=== PATIENT | male | born 1965 | race African-American/Black ===

== ENCOUNTER 2016-08-19 11:35 | Emergency (ER) | payer OTHER ==
[2016-08-19] MEDS ORDERED: Ondansetron HCl/PF 4 MG/2 ML Vial ONE (13:25)
[2016-08-19] MEDS ORDERED: Sodium Chloride 0.9% 1,000 ML ONE (13:26)
[2016-08-19 13:39] LABS: #Eosinphils 0.1 thou/uL (0.0-0.7); #Lymphocytes 0.5 thou/uL (1.20-3.40); #Monocytes 0.2 thou/uL (0.11-0.59); #Neutrophils 7.8 thou/uL (1.40-6.50); %Basophils 0.5 % (0.0-1.0); %Eosinophils 1.1 % (0.0-10.0); %Lymphocytes 5.7 % (21.0-51.0); %Monocytes 2.7 % (0.0-10.0); Hematocrit 53.3 % (42.0-52.0); Mean Platelet Volume 6.4 fL (7.4-10.4); Red Blood Cell (RBC) Count 5.52 mill/uL (4.70-6.10); White Blood Cell (WBC) Count 8.7 thou/uL (4.8-10.8)
[2016-08-19 13:51] LABS: ALT (SGPT) 17 U/L (0-55); AST (SGOT) 16 U/L (5-34); Alkaline Phosphatase 73 U/L (40-150); Anion Gap 13 mmol/L (10-20); BUN (Urea Nitrogen) 12 mg/dL (8.4-25.7); Calc. Creatinine Clearance 0 mL/min (70-130); Calcium 9.3 mg/dL (7.8-10.44); Carbon Dioxide 24 mmol/L (22-29); Chloride 105 mmol/L (98-107); Estimated GFR-MDRD 82; Globulin 3.7 g/dL (2.4-3.5); Lipase 25 U/L (8-78); Protein, Total 8.2 g/dL (6.0-8.3)
[2016-08-19 13:51] LABS: Blood, Urine Small (Negative); Glucose, Urine (Dipstick) Negative (Negative); Ketone, Urine 15 mg/dL (Negative); Nitrite Negative (Negative); Protein, Urine (Dipstick) 30 mg/dL (Neg-Trace); Urobilinogen 0.2 mg/dL (0.2-1.0)
[2016-08-19 13:53] LABS: Bilirubin Negative (Negative)
[2016-08-19 13:58] LABS: Bacteria/HPF Rare-Few HPF (None Seen); RBC/HPF 0-3 HPF (0-3); Squamous Epithelial 0-3 HPF (0-3); WBC/HPF 0-3 HPF (0-3)
--- NOTE | 2016-08-19 14:52 | CT ---
EXAM: ABDOMEN CT WITHOUT CONTRAST PELVIC CT WITHOUT CONTRAST 08/19/16 HISTORY: Left upper quadrant pain in the abdomen times three days. Nausea and vomiting. COMPARISON: None. TECHNIQUE: Abdomen and pelvic CT are performed without IV or oral contrast. Coronal reformatted images are subm itted for interpretation. FINDINGS: ABDOMEN CT: The lung bases are clear. The heart size is normal. No pericardial effusion. Descending thoracic and abdominal aorta are of normal caliber. No periaortic fat stranding. No gastrohepatic, retrocrural or periportal lymphadenopathy. No mesenteric mass, lymphadenopathy, fr ee air or free fluid. Evaluation of the solid organs is limited with lack of oral contrast. No solid organ abnormality. Gallbladder is unremarkable. Hypodensities in the left and right renal pelvis compatible with bilateral parapelvic cysts. Bilater ally, no hydronephrosis, nephrolithiasis, perinephric fat stranding. Bilateral ureters have a normal caliber. No hydroureter, periureteral fat stranding or ureterolithiasis. Evaluation of the alimentary canal is limited by lack of oral contrast. No evidence of bowel obstruc tion. Normal caliber appendix. Scattered fluid and fecal material is noted in nondistended, nondilat ed colon. PELVIC CT: No mass, lymphadenopathy, free air or free fluid. There are no osteoblastic or osteolytic lesions. IMPRESSION: 1. Bilateral peripelvic cysts. Bilaterally, no obstructive uropathy. 2. Normal caliber appendix. POS: [facility]
--- NOTE | 2016-08-19 16:10 | ERRECORD ---
[facility] EMERGENCY RECORD HPI ABDOMINAL PAIN (15:22 AGRE) CHIEF COMPLAINT: Patient presents for evaluation of abdominal pain. HISTORIAN: History provided by patient, LUQ AND LLQ ABDOMINAL PAIN SINCE AROUND 3 AM. HAD SOME VOMITING INITIALLY, RECENTLY HAD 3 LOOSE STOOLS. HAS CHILLS BUT NO FEVER, NO URINARY SYMPTOMS. NO BLOOD IN THE STOOLS OR URINE OR EMESIS. NO INJURIES. DENIES SICK CONTACTS, TRAVELING, CAMPING, BAD FOOD, ANTIBIOTICS RECENTLY. THE PAIN GOES TO HIS BACK ON THE LEFT. LOCATION MALE: No localizing symptoms. QUALITY: Pain is dull in nature, described as aching, described as cramping, described as pressure-like. SEVERITY: Maximum severity of symptoms severe, Currently symptoms are severe. TIME COURSE: Gradual onset of symptoms. ASSOCIATED WITH: No associated chills, No associated constipation, Associated with diarrhea, No associated fever, No associated genital discharge, No associated groin pain, No associated hematuria, No associated melena, Associated with nausea, No associated testicular pain, No associated inability to tolerate oral intake, No associated urinary tract infection signs or symptoms, Associated with vomiting, Denies any other complaints. RELIEVED BY: Patient's condition relieved by nothing. EXACERBATED BY: Patient's condition exacerbated by nothing. ROS (15:25 AGRE) CONSTITUTIONAL: Historian denies chills, denies fever, denies weakness. EYES: Historian denies eye redness, denies vision changes. ENT: Historian denies sore throat, denies stridor. CARDIOVASCULAR: Historian denies chest pain, denies diaphoresis. RESPIRATORY: Historian denies cough, denies shortness of breath. GI: Historian reports abdominal pain, denies appetite changes, denies constipation, denies hematemesis, denies hematochezia, denies jaundice, denies melena, reports nausea, reports vomiting. MUSCULOSKELETAL: Historian denies back pain, denies neck pain. SKIN: Historian denies skin changes, denies skin lesions. NEUROLOGIC: Historian denies confusion, denies dizziness, denies focal weakness, denies headache. HEMO/LYMPHATIC: Normal hematologic/lymphatic system review, Historian denies petechiae. PSYCHIATRIC: Negative psychiatric review of systems, Historian denies anxiety. PAST MEDICAL HISTORY (12:46 REZE) MEDICAL HISTORY: Flu vaccine not up to date, Tetanus not up to date, Flu vaccine not up to date, Tetanus not up to date, Pneumococcal vaccine not up to date, Flu vaccine not up to date, Tetanus immunization up to date, Pneumococcal &a-1R&a+25V*p+0X*k4130D*c202B*c15G*c2P*p-0X&a-25V&a+1R Name: Alex Samson : 1965 M51 MedRec: [id number] AcctNum: [id number] Prepared: FriAug 19, 2016 15:57 by Interface Page 1 of 4 pMD [facility] EMERGENCY RECORD vaccine not up to date, Past medical history includes gastrointestinal disease, Self treats indigestion with zantac about 3 times weekly, Past medical history includes history of hypertension, was on RX for HBP in past but discontinued treatment - not currently on anything. reviewed 08-19-16. MALE SURGICAL HISTORY: states had egd 2 years ago, Patient has no surgical history.reviewed 08-19-16. SOCIAL HISTORY: Patient drinks socially, every week, Patient denies drug use, Patient currently uses tobacco, smokes cigarettes, daily, Patient has smoked for 20 years, Patient smokes 1/2 packs per day, Patient drinks socially, Patient denies drug use, Patient currently uses tobacco, smokes cigarettes, Patient smokes 1/2 packs per day, Patient drinks socially, rarely, Patient currently uses drugs, abuses marijuana, Patient currently uses tobacco, daily, Patient currently uses tobacco, Patient smokes cigarettes, Patient smokes 1/2 packs per day, Patient has smoked for 30 years, Tobacco history notes: since 18 yrs old, Patient drinks socially, Alcohol history notes: on weekends primarily, Patient currently uses drugs, abuses marijuana, abuses opiate, Last used: 2 days ago, Drug history notes: "I have tried it all....except Heroin". States is currently only using Marijuana.reviewed 08-07-15. FAMILY HISTORY: Family history includes diabetes, father, Family history includes hypertension, mother, father. reviewed 08-19-16. KNOWN ALLERGIES No Known Allergies Seasonal (Unconfirmed): Severity: Mild, - SELF TREATS CURRENT MEDICATIONS (12:39 REZE) Zantac 75: TABLET : Strength - 75 mg : ORAL Patient Dose: 75 mg Oral once a day. VITAL SIGNS VITAL SIGNS: BP: 133/80, Pulse: 109, Resp: 20, Temp: 99.5 (Oral), Pain: 9 (Constant), O2 sat: 99 on Room Air, Time: 08/19/2016 12:35. (12:35 REZE) BP: 136/73, Pulse: 100, Resp: 18, O2 sat: 97 on RA, Time: 08/19/2016 15:45. (15:45 MSPE) PHYSICAL EXAM (15:27 AGRE) CONSTITUTIONAL: Vital signs reviewed, Patient afebrile, Respiratory rate normal, Patient appears non toxic, Patient appears pain free, Patient alert and oriented to person, place and time, NURSES NOTES REVIEWED. HEAD: Head exam included findings of head atraumatic, normocephalic. EYES: Eye exam included findings of eyelids normal to inspection, &a-1R&a+25V*p+0X*[id number]*c202B*c15G*c2P*p-0X&a-25V&a+1R Name: Alex Samson : 1965 M51 MedRec: [id number] AcctNum: [id number] Prepared: FriAug 19, 2016 15:57 by Interface Page 2 of 4 pMD [facility] EMERGENCY RECORD Extraocular muscles intact, Conjunctiva normal, Sclera normal. ENT: Ear exam normal, Nose exam normal, Mouth exam normal. NECK: Neck exam normal, Neck exam included findings of normal range of motion, no meningeal signs, no cervical adenopathy. RESPIRATORY CHEST: Respiratory and chest exam normal, Respiratory exam included findings of no respiratory distress, Breath sounds clear, No wheezing, No rales, No rhonchi, Breath sounds not diminished. CARDIOVASCULAR: Cardiovascular exam included findings of heart rate regular rate and rhythm, Heart sounds normal, normal S1, normal S2, no murmurs, no rub, no gallop. ABDOMEN MALE: Abdominal exam normal, Abdominal exam included findings of abdomen nontender, Bowel sounds normal, Liver normal, Spleen normal, no distension, no mass. BACK: Back exam normal, Back exam included findings of normal inspection, range of motion normal. UPPER EXTREMITY: Upper extremity exam included findings of inspection normal, Range of motion normal. LOWER EXTREMITY: Lower extremity exam included findings of inspection normal, Range of motion normal. NEURO: Neuro exam normal, Neuro exam findings include patient oriented to person, place and time, Speech normal, Gait normal, Memory normal, Cranial nerves intact, no focal motor deficits. SKIN: Skin exam normal, Skin exam included findings of skin warm, dry, and normal in color. LYMPHATIC: Lymphatic exam normal, Lymphatic exam included findings of cervical nodes normal. PSYCHIATRIC: Psychiatric exam normal, Normal affect. RADIOLOGYINTERPRETATION (15:47 AGRE) DIRECTOR OF EXHIBITS: Preliminary review of CT scans by, Radiologist, BILATERAL NON-OBSTRUCTIVE UROPATHY. MEDICATION ADMINISTRATION SUMMARY Drug Name: ondansetron HCl intravenous, Dose Ordered: 4 mg, Route: IV Push, Status: Given, Time: 13:32 08/19/2016, Drug Name: sodium chloride 0.9 % intravenous, Dose Ordered: 1000 mL, Route: IV Fluid Infusion, Status: Given, Time: 13:30 08/19/2016, Detailed record available in Medication Service section. DOCTOR NOTES (15:47 AGRE) RE-EVALUATION: Routine re-evaluation, after administration of antiemetics, The patient's condition has improved. TEXT: VS REMAINED STABLE IN ED AND THE VOMITING RESOLVED WITH ZOFRAN. HE REMAINED COMFORTABLE WITHOUT SIGNS OF ANY DISCOMFORT/PAIN. DISCUSSED WITH HIM FINDINGS ON EXAM, RESULTS OF HIS ED TEST, VOMITING/DIARRHEA PROBABLY VIRAL, HAS HEMATURIA AND LESIONS ON KIDNEYS THAT MAY BE CYST. ADVISED NEED FOR CLOSE OUT PATIENT FOLLOW UP, MANAGEMENT OF HIS SYMPTOMS, MANAGEMENT OF HIS PAIN. HE &a-1R&a+25V*p+0X*c5227G*c202B*c15G*c2P*p-0X&a-25V&a+1R Name: Alex Samson : 1965 M51 MedRec: [id number] AcctNum: [id number] Prepared: FriAug 19, 2016 15:57 by Interface Page 3 of 4 pMD [facility] EMERGENCY RECORD EXPRESSED UNDERSTANDING AND AGREEMENT. PATIENT STATUS: Patient has improved since arrival to emergency department. PATIENT PLAN: The patient will be discharged. DATA REVIEWED: Lab data reviewed, Xray data reviewed. PROBLEM LIST No recorded problems DIAGNOSIS (15:29 AGRE) FINAL: PRIMARY: VOMITING AND DIARRHEA, ADDITIONAL: HEMATURIA, UROPATHY. PRESCRIPTION (14:39 AGRE) Motrin: TABLET : 600 mg : ORAL : Quantity: 1 Unit: tab(s) Route: ORAL Schedule: every 6 hours PRN Dispense: 16 May substitute. Refills: No Refills . NOTES: No Refills. Zofran oral: TABLET : 4 mg : ORAL : Quantity: 1-2 Unit: tab(s) Route: ORAL Schedule: every 6 hours PRN Dispense: 24 May substitute. Refills: No Refills . NOTES: ^s=No Refills No Refills. DISPOSITION PATIENT: Disposition Type: Discharge, Disposition: *Discharge Home, Condition: Improved. (14:38 DEEP) Patient left the department. (15:54 PETRONA) Warren: DEEP=MD Lobo Andrea MSPE=VIRI Nolan, Veronique SEGURA=VIRI Ruiz, Cee &a-1R&a+25V*p+0X*z9938J*c202B*c15G*c2P*p-0X&a-25V&a+1R Name: Alex Samson : 1965 M51 MedRec: [id number] AcctNum: [id number] Prepared: FriAug 19, 2016 15:57 by Interface Page 4 of 4 pMD MTDD
--- NOTE | 2016-08-19 16:13 | PICIS ---
[facility] EMERGENCY RECORD TRIAGE (12:38 REZE) PATIENT: NAME: Alex Samson, AGE: 51, GENDER: male, : Ashley 1965, TIME OF GREET: FriAug 19, 2016 11:36, PREFERRED LANGUAGE: Welsh, ETHNICITY: Not or , ECODE BILLING MAP: [facility], SSN: [id number], Zip Code: [address], KG WEIGHT: 99.79, PHONE: , , , PERSON ID: [id number], PCP: none. (12:38 REZE) COMPLAINT: ABDOMINAL PAIN. (12:38 REZE) ADMISSION: URGENCY: 3 Urgent, ADMISSION SOURCE: Home, TRANSPORT: CAR, BED: TRIAGE. (12:38 REZE) ASSESSMENT: Assessment: c/o abdominal pain, Symptoms began 5 hours ago. (12:46 REZE) PAIN: Patient complains of pain described as, cramping, Pain is constant, No aggravating factors, No relieving factors. (12:46 REZE) IMMUNIZATIONS: Flu vaccine not up to date, Tetanus immunization up to date, Pneumococcal vaccine not up to date, Notes: states took Imodium around 0730. (12:46 REZE) SIRS SCORING: Heart Rate 55-109 (0), Temp range 96.8-101.1 (0), respiratory rate 12-24 (0), Mental Status altered: no (0), Infection or Suspected Infection: No. (12:46 REZE) TRIAGE SCREENING: Patient denies suicidal ideation, Patient denies presence of domestic violence. (12:46 REZE) PROVIDERS: TRIAGE NURSE: Cee Ruiz RN. (12:38 REZE) VITAL SIGNS: BP 133/80, Pulse 109, Resp 20, Temp 99.5, (Oral), Pain 9, (Constant), O2 Sat 99, on Room Air, Time 08/19/2016 12:35. (12:35 REZE) PREVIOUS VISIT ALLERGIES: No Known Allergies. (12:38 REZE) No Known Allergies. (12:46 REZE) KNOWN ALLERGIES No Known Allergies Seasonal (Unconfirmed): Severity: Mild, - SELF TREATS CURRENT MEDICATIONS (12:39 REZE) Zantac 75: TABLET : Strength - 75 mg : ORAL Patient Dose: 75 mg Oral once a day. VITAL SIGNS VITAL SIGNS: BP: 133/80, Pulse: 109, Resp: 20, Temp: 99.5 (Oral), Pain: 9 (Constant), O2 sat: 99 on Room Air, Time: 08/19/2016 12:35. (12:35 REZE) BP: 136/73, Pulse: 100, Resp: 18, O2 sat: 97 on RA, Time: 08/19/2016 15:45. (15:45 MSPE) NURSING ASSESSMENT: ABDOMEN (13:05 REZE) CONSTITUTIONAL: Patient arrives ambulatory, Gait steady, History &a-1R&a+25V*p+0X*s7610J*c202B*c15G*c2P*p-0X&a-25V&a+1R Name: Alex Samson : 1965 M51 MedRec: [id number] AcctNum: [id number] Prepared: FriAug 19, 2016 16:03 by Interface Page 1 of 11 D [facility] EMERGENCY RECORD obtained from patient, Patient appears, in distress due to pain, Patient cooperative, Patient alert, Oriented to person, place and time, Skin warm, Skin dry, Skin normal in color, Mucous membranes pink, Mucous membranes moist, Patient is well-groomed, Patient complains of abdominal pain, diarrhea,vomiting. PAIN: cramping pain, to the left upper quadrant, to the right upper quadrant, on a scale 0-10 patient rates pain as 9, Pain relieved by, states took Imodium at 0730. ABDOMEN: Abdomen assessment findings include abdomen symmetrical, no discolorations, no ecchymosis, no hernia, no incision(s), no lesions, no scars, no striae, no hemorrhoids, Abdomen soft, tender, to the left upper quadrant, to the right upper quadrant, no pulsatile mass, Bowel sounds, hyperactive, Associated with vomiting, history of vomiting, Number of times: 1, Associated with diarrhea, loose, Number of episodes: 5. GENITOURINARY MALE: Notes: deferred. SAFETY: Side rails up, Cart/Stretcher in lowest position, Family at bedside. NURSING PROCEDURE: DISCHARGE NOTE (15:45 MSPE) DISCHARGE: Patient discharged to home, ambulating without assistance, Summary of Care printed/ provided, Discharge instructions given to patient, Simple or moderate discharge teaching performed, Prescriptions given and instructions on side effects given, Above person(s) verbalized understanding of discharge instructions and follow-up care, Patient treated and evaluated by physician. BELONGINGS: Belongings remain with patient. NOTES: Notes: IV dc'd with cath intact prior to dc. 2x2 dressing applied. VITAL SIGNS: BP: 136, / 73, Pulse: 100, Resp: 18, O2 sat: 97, on: RA. NURSING PROCEDURE: IV (13:20 REZE) PATIENT IDENITIFIER: Patient actively involved in identification process, Patient's identity verified by patient stating name, Patient's identity verified by patient stating date. IV SITE 1: IV therapy indicated for hydration, IV therapy indicated for medication administration, IV established, to the left antecubital, using a 20 gauge catheter, in one attempt, IV site prepped with chloraprep, Saline lock established, Flushed with normal saline (mls): 10 ml, Labs drawn at time of placement, labeled in the presence of the patient and sent to lab. FOLLOW-UP SITE 1: After procedure, sterile transparent dressing applied. NOTES: Patient tolerated procedure well. SAFETY: Side rails up, Cart/Stretcher in lowest position. &a-1R&a+25V*p+0X*h4227Z*c202B*c15G*c2P*p-0X&a-25V&a+1R Name: Alex Samson : 1965 M51 MedRec: [id number] AcctNum: [id number] Prepared: FriAug 19, 2016 16:03 by Interface Page 2 of 11 pMD [facility] EMERGENCY RECORD NURSING PROCEDURE: NURSE NOTES NURSES NOTES: Warm blanket given to patient. (13:30 REZE) Patient examined by physician. (13:10 REZE) Patient in no apparent distress, Assistance offered to patient, Patient is awaiting results, Shift change report given, to from Cee Murray, Provided opportunity to answer questions, Notes: Pt alert and cheerful. (14:40 GHIA) Notes: Per Er Dr Lobo clarification on RAD report needed....don't discharge pt yet. (14:45 GHIA) Notes: I called Er Dr Lobo regarding pt discharge and she states "waiting on written RAD report". (15:01 [facility]) NURSING PROCEDURE: TRANSPORT TO TESTS PATIENT IDENTIFIER: Patient actively involved in identification process, Patient's identity verified by patient stating name, Patient's identity verified by patient stating date. (14:17 REZE) TRANSPORT TO TESTS: Transport indicated to facilitate diagnosis, Patient transported to CT scan, ambulatory, Accompanied by x-ray crime scene technician. (14:17 REZE) FOLLOW-UP: After procedure, patient returned to emergency department. (14:24 REZE) ORDER DETAILS Order Name: CBC with Differential, Status: Active, Time: 13:12 08/19/2016, User: DEEP, - Ordered for: MD Lobo Andrea, - Entered by: MD Lobo Andrea - [facility] Aug 19, 2016 13:12, - Quantity: 1, Order Name: Comprehensive Metabolic Panel, Status: Active, Time: 13:12 08/19/2016, User: DEEP, - Ordered for: MD Lobo Andrea, - Entered by: MD Lobo Andrea - [facility] Aug 19, 2016 13:12, - Quantity: 1, Order Name: CT Abdomen Pelvis WO Con, Status: Active, Time: 14:02 08/19/2016, User: DEEP, - Ordered for: MD Lobo Andrea, - Entered by: MD Lobo Andrea - [place] Aug 19, 2016 14:02, - Quantity: 1, Order Name: Lipase, Status: Active, Time: 13:12 08/19/2016, User: DEEP, - Ordered for: MD Lobo Andrea, - Entered by: MD Lobo Andrea - [place] Aug 19, 2016 13:12, - Quantity: 1, Order Name: SALINE LOCK, Status: Done, Time: 13:33 08/19/2016, User: IMELDA, - Ordered for: MD Lobo Andrea, - Entered by: MD Lobo Andrea - [place] Aug 19, 2016 13:12, - Quantity: 1, &a-1R&a+25V*p+0X*z1947E*c202B*c15G*c2P*p-0X&a-25V&a+1R Name: Alex Samson : 1965 M51 MedRec: [id number] AcctNum: [id number] Prepared: FriAug 19, 2016 16:03 by Interface Page 3 of 11 D [facility] EMERGENCY RECORD Order Name: Urinalysis w/ Rflx Microscopic, Status: Active, Time: 13:12 08/19/2016, User: DEEP, - Ordered for: MD Lobo Andrea, - Entered by: MD Lobo Andrea - FriAug 19, 2016 13:12, - Quantity: 1. MEDICATION ADMINISTRATION SUMMARY Drug Name: ondansetron HCl intravenous, Dose Ordered: 4 mg, Route: IV Push, Status: Given, Time: 13:32 08/19/2016, Drug Name: sodium chloride 0.9 % intravenous, Dose Ordered: 1000 mL, Route: IV Fluid Infusion, Status: Given, Time: 13:30 08/19/2016, Detailed record available in Medication Service section. MEDICATION SERVICE ondansetron HCl intravenous: Order: ondansetron HCl intravenous (ondansetron HCl) - Dose: 4 mg : IV Push Ordered by: Hoang Lobo MD Entered by: Hoang Lobo MD FriAug 19, 2016 13:12 , Acknowledged by: Cee Ruiz RN FriAug 19, 2016 13:25 Documented as given by: Cee Ruiz RN FriAug 19, 2016 13:32 Patient, Medication, Dose, Route and Time verified prior to administration. Amount given: 4 mg, IV SITE #1 IVP, initial medication, Slowly, Connections checked prior to administration, Line traced prior to administration, Catheter placement confirmed via flush prior to administration, IV site without signs or symptoms of infiltration during medication administration, No swelling during administration, No drainage during administration, IV flushed after administration, Correct patient, time, route, dose and medication confirmed prior to administration, Patient advised of actions and side-effects prior to administration, Allergies confirmed and medications reviewed prior to administration, Patient in position of comfort, Side rails up, Cart in lowest position. sodium chloride 0.9 % intravenous: Order: sodium chloride 0.9 % intravenous (0.9 % sodium chloride) - Dose: 1000 mL : IV Fluid Infusion Ordered by: Hoang Lobo MD Entered by: Hoang Lobo MD FriAug 19, 2016 13:12 , Acknowledged by: Cee Ruiz RN FriAug 19, 2016 13:25 Documented as given by: Cee Ruiz RN FriAug 19, 2016 13:30 Patient, Medication, Dose, Route and Time verified prior to administration. Amount given: 1000 ml, IV SITE #1 IV fluids established for hydration, IV SITE #1 into left antecubital, IV SITE #1 1st bag hung, amount 1 Liter hung, IV SITE #1 bolus of 1000 ml established, IV SITE #1 Rate of bolus, wide open, via primary tubing, Connections checked prior to administration, Line traced prior to administration, Catheter placement confirmed via flush prior to administration, IV site without signs or symptoms of infiltration during medication &a-1R&a+25V*p+0X*u4388U*c202B*c15G*c2P*p-0X&a-25V&a+1R Name: Alex Samson : 1965 M51 MedRec: [id number] AcctNum: [id number] Prepared: FriAug 19, 2016 16:03 by Interface Page 4 of 11 pMD [facility] EMERGENCY RECORD administration, No swelling during administration, No drainage during administration, IV flushed after administration, Correct patient, time, route, dose and medication confirmed prior to administration, Patient advised of actions and side-effects prior to administration, Allergies confirmed and medications reviewed prior to administration, Patient in position of comfort, Side rails up, Cart in lowest position. : Follow Up : Response assessment performed, No signs or symptoms of allergic reaction noted, _IV SITE #1:_, IV fluid infusion discontinued, on FriAug 19, 2016 14:15, 45 minutes, ., Total amount infused: 1000 ml, Patient in position of comfort. (14:15 REZE) HPI ABDOMINAL PAIN (15:22 AGRE) CHIEF COMPLAINT: Patient presents for evaluation of abdominal pain. HISTORIAN: History provided by patient, LUQ AND LLQ ABDOMINAL PAIN SINCE AROUND 3 AM. HAD SOME VOMITING INITIALLY, RECENTLY HAD 3 LOOSE STOOLS. HAS CHILLS BUT NO FEVER, NO URINARY SYMPTOMS. NO BLOOD IN THE STOOLS OR URINE OR EMESIS. NO INJURIES. DENIES SICK CONTACTS, TRAVELING, CAMPING, BAD FOOD, ANTIBIOTICS RECENTLY. THE PAIN GOES TO HIS BACK ON THE LEFT. LOCATION MALE: No localizing symptoms. QUALITY: Pain is dull in nature, described as aching, described as cramping, described as pressure-like. SEVERITY: Maximum severity of symptoms severe, Currently symptoms are severe. TIME COURSE: Gradual onset of symptoms. ASSOCIATED WITH: No associated chills, No associated constipation, Associated with diarrhea, No associated fever, No associated genital discharge, No associated groin pain, No associated hematuria, No associated melena, Associated with nausea, No associated testicular pain, No associated inability to tolerate oral intake, No associated urinary tract infection signs or symptoms, Associated with vomiting, Denies any other complaints. RELIEVED BY: Patient's condition relieved by nothing. EXACERBATED BY: Patient's condition exacerbated by nothing. ROS (15:25 AGRE) CONSTITUTIONAL: Historian denies chills, denies fever, denies weakness. EYES: Historian denies eye redness, denies vision changes. ENT: Historian denies sore throat, denies stridor. CARDIOVASCULAR: Historian denies chest pain, denies diaphoresis. RESPIRATORY: Historian denies cough, denies shortness of breath. GI: Historian reports abdominal pain, denies appetite changes, denies constipation, denies hematemesis, denies hematochezia, denies jaundice, denies melena, reports nausea, reports vomiting. MUSCULOSKELETAL: Historian denies back pain, denies neck pain. &a-1R&a+25V*p+0X*p0083B*c202B*c15G*c2P*p-0X&a-25V&a+1R Name: Alex Samson : 1965 M51 MedRec: [id number] AcctNum: [id number] Prepared: FriAug 19, 2016 16:03 by Interface Page 5 of 11 D [facility] EMERGENCY RECORD SKIN: Historian denies skin changes, denies skin lesions. NEUROLOGIC: Historian denies confusion, denies dizziness, denies focal weakness, denies headache. HEMO/LYMPHATIC: Normal hematologic/lymphatic system review, Historian denies petechiae. PSYCHIATRIC: Negative psychiatric review of systems, Historian denies anxiety. PAST MEDICAL HISTORY (12:46 REZE) MEDICAL HISTORY: Flu vaccine not up to date, Tetanus not up to date, Flu vaccine not up to date, Tetanus not up to date, Pneumococcal vaccine not up to date, Flu vaccine not up to date, Tetanus immunization up to date, Pneumococcal vaccine not up to date, Past medical history includes gastrointestinal disease, Self treats indigestion with zantac about 3 times weekly, Past medical history includes history of hypertension, was on RX for HBP in past but discontinued treatment - not currently on anything. reviewed 08-19-16. MALE SURGICAL HISTORY: states had egd 2 years ago, Patient has no surgical history.reviewed 08-19-16. SOCIAL HISTORY: Patient drinks socially, every week, Patient denies drug use, Patient currently uses tobacco, smokes cigarettes, daily, Patient has smoked for 20 years, Patient smokes 1/2 packs per day, Patient drinks socially, Patient denies drug use, Patient currently uses tobacco, smokes cigarettes, Patient smokes 1/2 packs per day, Patient drinks socially, rarely, Patient currently uses drugs, abuses marijuana, Patient currently uses tobacco, daily, Patient currently uses tobacco, Patient smokes cigarettes, Patient smokes 1/2 packs per day, Patient has smoked for 30 years, Tobacco history notes: since 18 yrs old, Patient drinks socially, Alcohol history notes: on weekends primarily, Patient currently uses drugs, abuses marijuana, abuses opiate, Last used: 2 days ago, Drug history notes: "I have tried it all....except Heroin". States is currently only using Marijuana.reviewed 08-07-15. FAMILY HISTORY: Family history includes diabetes, father, Family history includes hypertension, mother, father. reviewed 08-19-16. PHYSICAL EXAM (15:27 AGRE) CONSTITUTIONAL: Vital signs reviewed, Patient afebrile, Respiratory rate normal, Patient appears non toxic, Patient appears pain free, Patient alert and oriented to person, place and time, NURSES NOTES REVIEWED. HEAD: Head exam included findings of head atraumatic, normocephalic. EYES: Eye exam included findings of eyelids normal to inspection, Extraocular muscles intact, Conjunctiva normal, Sclera normal. ENT: Ear exam normal, Nose exam normal, Mouth exam normal. NECK: Neck exam normal, Neck exam included findings of normal &a-1R&a+25V*p+0X*u6728V*c202B*c15G*c2P*p-0X&a-25V&a+1R Name: Alex Samson : 1965 M51 MedRec: [id number] AcctN: [id number] Prepared: FriAug 19, 2016 16:03 by Interface Page 6 of 11 pMD [facility] EMERGENCY RECORD range of motion, no meningeal signs, no cervical adenopathy. RESPIRATORY CHEST: Respiratory and chest exam normal, Respiratory exam included findings of no respiratory distress, Breath sounds clear, No wheezing, No rales, No rhonchi, Breath sounds not diminished. CARDIOVASCULAR: Cardiovascular exam included findings of heart rate regular rate and rhythm, Heart sounds normal, normal S1, normal S2, no murmurs, no rub, no gallop. ABDOMEN MALE: Abdominal exam normal, Abdominal exam included findings of abdomen nontender, Bowel sounds normal, Liver normal, Spleen normal, no distension, no mass. BACK: Back exam normal, Back exam included findings of normal inspection, range of motion normal. UPPER EXTREMITY: Upper extremity exam included findings of inspection normal, Range of motion normal. LOWER EXTREMITY: Lower extremity exam included findings of inspection normal, Range of motion normal. NEURO: Neuro exam normal, Neuro exam findings include patient oriented to person, place and time, Speech normal, Gait normal, Memory normal, Cranial nerves intact, no focal motor deficits. SKIN: Skin exam normal, Skin exam included findings of skin warm, dry, and normal in color. LYMPHATIC: Lymphatic exam normal, Lymphatic exam included findings of cervical nodes normal. PSYCHIATRIC: Psychiatric exam normal, Normal affect. LAB INTERPRETATION (15:27 AGRE) INTERPRETATION: CBC abnormal, Hemoglobin elevated, Hematocrit elevated, Chemistry abnormal, Glucose elevated, Liver functions normal, Urinalysis abnormal, positive for ketones, positive for protein. EVENTS TRANSFER: Triage to Emergency Triage. (FriAug 19, 2016 12:38 REZE) Emergency Triage to Emergency Room *TR1. (12:40 REZE) Removed from Emergency Emergency Room *TR1. (15:54 MSPE) RADIOLOGYINTERPRETATION (15:47 AGRE) INVENTORY WORKER: Preliminary review of CT scans by, Radiologist, BILATERAL NON-OBSTRUCTIVE UROPATHY. O2SAT INTERPRETATION (15:27 AGRE) O2SAT: Continuous pulse oximetry, Oxygen saturation 99%, on room air, Oxygen saturation interpretation: Normal, No intervention required. DOCTOR NOTES (15:47 AGRE) RE-EVALUATION: Routine re-evaluation, after administration of &a-1R&a+25V*p+0X*d7160K*c202B*c15G*c2P*p-0X&a-25V&a+1R Name: Aelx Samson : 1965 M51 MedRec: [id number] AcctNum: [id number] Prepared: FriAug 19, 2016 16:03 by Interface Page 7 of 11 pMD [facility] EMERGENCY RECORD antiemetics, The patient's condition has improved. TEXT: VS REMAINED STABLE IN ED AND THE VOMITING RESOLVED WITH ZOFRAN. HE REMAINED COMFORTABLE WITHOUT SIGNS OF ANY DISCOMFORT/PAIN. DISCUSSED WITH HIM FINDINGS ON EXAM, RESULTS OF HIS ED TEST, VOMITING/DIARRHEA PROBABLY VIRAL, HAS HEMATURIA AND LESIONS ON KIDNEYS THAT MAY BE CYST. ADVISED NEED FOR CLOSE OUT PATIENT FOLLOW UP, MANAGEMENT OF HIS SYMPTOMS, MANAGEMENT OF HIS PAIN. HE EXPRESSED UNDERSTANDING AND AGREEMENT. PATIENT STATUS: Patient has improved since arrival to emergency department. PATIENT PLAN: The patient will be discharged. DATA REVIEWED: Lab data reviewed, Xray data reviewed. PROBLEM LIST No recorded problems DIAGNOSIS (15:29 AGRE) FINAL: PRIMARY: VOMITING AND DIARRHEA, ADDITIONAL: HEMATURIA, UROPATHY. DISPOSITION PATIENT: Disposition Type: Discharge, Disposition: *Discharge Home, Condition: Improved. (14:38 AGRE) Patient left the department. (15:54 MSPE) INSTRUCTION (15:31 AGRE) DISCHARGE: DIET, VOMITING OR DIARRHEA [6YR-ADULT]. FOLLOWUP: [facility], /[facility], [address] [place] [id number], . SPECIAL: IT APPEARS THAT YOU HAVE A GI VIRAL ILLNESS. HOWEVER YOU DO HAVE GROWTHS ON BOTH KIDNEYS THAT NEED FURTHER EVALUATION. THEY MAY BE CYST BUT SEE YOUR PHYSICIAN SINCE YOU HAVE BLOOD IN THE URINE TO ARRANGE FOR FURTHER STUDIES OF YOUR KIDNEYS. MEANWHIILE. STAY ON THE VOMITING AND DIARRHEA DIET, TAKE LOTS OF FLUIDS, TAKE MOTRIN FOR PAIN. SEE YOUR PHYSICIAN THIS WEEK. RETURN TO THE EMERGENCY DEPARTMENT IF WORSENING OR IF NEW SYMPTOMS DEVELOP. PRESCRIPTION (14:39 AGRE) Motrin: TABLET : 600 mg : ORAL : Quantity: 1 Unit: tab(s) Route: ORAL Schedule: every 6 hours PRN Dispense: 16 May substitute. Refills: No Refills . NOTES: No Refills. Zofran oral: TABLET : 4 mg : ORAL : Quantity: 1-2 Unit: tab(s) Route: ORAL Schedule: every 6 hours PRN Dispense: 24 May substitute. Refills: No Refills . NOTES: ^s=No Refills No Refills. IMAGING (15:52 MSPE) *DISCHARGE INSTRUCTIONS RECEIPT: Image captured from scanner. &a-1R&a+25V*p+0X*w5930M*c202B*c15G*c2P*p-0X&a-25V&a+1R Name: Alex Samson : 1965 M51 MedRec: [id number] AcctNum: [id number] Prepared: FriAug 19, 2016 16:03 by Interface Page 8 of 11 pMD [facility] EMERGENCY RECORD Page 2 added. Image captured from scanner. *SUPPLY CHARGE SHEET: Image captured from scanner. ADMIN (15:51 AGRE) DIGITAL SIGNATURE: MD Lobo Andrea. RESULTS (15:46 AGRE) RADIOLOGY: CT Abdomen Pelvis WO Con Observe DT: FriAug 19, 2016 14:03, ABDPELWO EXAM: ABDOMEN CT WITHOUT CONTRAST PELVIC CT WITHOUT CONTRAST 08/19/16 HISTORY: Left upper quadrant pain in the abdomen times three days. Nausea and vomiting. COMPARISON: None. TECHNIQUE: Abdomen and pelvic CT are performed without IV or oral contrast. Coronal reformatted images are subm itted for interpretation. FINDINGS: ABDOMEN CT: The lung bases are clear. The heart size is normal. No pericardial effusion. Descending thoracic and abdominal aorta are of normal caliber. No periaortic fat stranding. No gastrohepatic, retrocrural or periportal lymphadenopathy. No mesenteric mass, lymphadenopathy, fr ee air or free fluid. Evaluation of the solid organs is limited with lack of oral contrast. No solid organ abnormality. Gallbladder is unremarkable. Hypodensities in the left and right renal pelvis compatible with bilateral parapelvic cysts. Bilater ally, no hydronephrosis, nephrolithiasis, perinephric fat stranding. Bilateral ureters have a normal caliber. No hydroureter, periureteral fat stranding or ureterolithiasis. Evaluation of the alimentary canal is limited by lack of oral &a-1R&a+25V*p+0X*s9635G*c202B*c15G*c2P*p-0X&a-25V&a+1R Name: Alex Samson : 1965 M51 MedRec: [id number] AcctNum: [id number] Prepared: FriAug 19, 2016 16:03 by Interface Page 9 of 11 D [facility] EMERGENCY RECORD contrast. No evidence of bowel obstruc tion. Normal caliber appendix. Scattered fluid and fecal material is noted in nondistended, nondilat ed colon. PELVIC CT: No mass, lymphadenopathy, free air or free fluid. There are no osteoblastic or osteolytic lesions. IMPRESSION: 1. Bilateral peripelvic cysts. Bilaterally, no obstructive uropathy. 2. Normal caliber appendix. POS: [facility] . LABORATORY: Urine Microscopic Collection DT: FriAug 19, 2016 13:49, RBC/HPF 0-3 HPF, Range (0-3), WBC/HPF 0-3 HPF, Range (0-3), Squamous Epithelial 0-3 HPF, Range (0-3), Bacteria/HPF Rare-Few HPF, Range (None Seen). Urinalysis w/ Rflx Microscopic Collection DT: FriAug 19, 2016 13:49, Color Yellow , Range (Yellow), Clarity Clear , Range (Clear), Specific [place], Urine 1.032 , Range (1.002-1.036), pH, Urine 6.0 , Range (5.0-9.0), Leukocyte Negative , Range (Negative), Nitrite Negative , Range (Negative), *Protein, Urine (Dipstick) 30 - H mg/dL, Range (Neg-Trace), Glucose, Urine (Dipstick) Negative mg/dL, Range (Negative), *Ketone, Urine 15 - H mg/dL, Range (Negative), Urobilinogen 0.2 mg/dL, Range (0.2-1.0), Bilirubin Negative , Range (Negative), , *Blood, Urine Small - H , Range (Negative). Lipase Collection DT: FriAug 19, 2016 13:28, Lipase 25 U/L, Range (8-78). Comprehensive Metabolic Panel Collection DT: FriAug 19, 2016 13:28, Sodium 138 mmol/L, Range (136-145), Potassium 4.0 mmol/L, Range (3.5-5.1), Chloride 105 mmol/L, Range (98-107), Carbon Dioxide 24 mmol/L, Range (22-29), Anion Gap 13 mmol/L, Range (10-20), BUN (Urea Nitrogen) 12 mg/dL, Range (8.4-25.7), Creatinine 1.14 mg/dL, Range (0.7-1.3), Estimated GFR-MDRD 82 , Reference Range for Estimated GFR: Greater than 90, mL/min/1.73 m2 NOTE: The MDRD equation has not been validated for use, with the &a-1R&a+25V*p+0X*s6845S*c202B*c15G*c2P*p-0X&a-25V&a+1R Name: Alex Samson : 1965 M51 MedRec: [id number] AcctNum: [id number] Prepared: FriAug 19, 2016 16:03 by Interface Page 10 of 11 pMD [facility] EMERGENCY RECORD elderly (over 70 years of age), women, patients with, serious comorbid condition or persons with extremes of body size, muscle, mass, or nutritional status. , *Glucose 109 - H mg/dL, Range (70-105), Calcium 9.3 mg/dL, Range (7.8-10.44), Bilirubin, Total 1.0 mg/dL, Range (0.2-1.2), Protein, Total 8.2 g/dL, Range (6.0-8.3), NOTE: Plasma values are generally 0.3 to 0.5 g/dL higher than serum values, due to the presence of fibrinogen. , Albumin 4.5 g/dL, Range (3.5-5.0), *Globulin 3.7 - H g/dL, Range (2.4-3.5), Alb/Glob Ratio 1.2 g/dL, Range (1.2-2.2), Alkaline Phosphatase 73 U/L, Range (40-150), AST (SGOT) 16 U/L, Range (5-34), ALT (SGPT) 17 U/L, Range (0-55). CBC with Differential Collection DT: FriAug 19, 2016 13:28, White Blood Cell (WBC) Count 8.7 thou/uL, Range (4.8-10.8), Red Blood Cell (RBC) Count 5.52 mill/uL, Range (4.70-6.10), Hemoglobin 16.8 g/dL, Range (14.0-18.0), *Hematocrit 53.3 - H %, Range (42.0-52.0), *Mean Corpuscular Volume 96.5 - H fl, Range (80.0-94.0), Mean Corpuscular Hemoglobin 30.4 pg, Range (27.0-31.0), *Mean Corpuscular HGB CONC 31.5 - L g/dL, Range (32.0-36.0), RBC Distribution Width 13.1 %, Range (11.5-14.5), Platelet Count 256 thou/uL, Range (130-400), *Mean Platelet Volume 6.4 - L fL, Range (7.4-10.4), *%Neutrophils 90.1 - H %, Range (42.0-75.0), *%Lymphocytes 5.7 - L %, Range (21.0-51.0), %Monocytes 2.7 %, Range (0.0-10.0), %Eosinophils 1.1 %, Range (0.0-10.0), %Basophils 0.5 %, Range (0.0-1.0), *#Neutrophils 7.8 - H thou/uL, Range (1.40-6.50), *#Lymphocytes 0.5 - L thou/uL, Range (1.20-3.40), #Monocytes 0.2 thou/uL, Range (0.11-0.59), #Eosinphils 0.1 thou/uL, Range (0.0-0.7), #Basophils 0.0 thou/uL, Range (0.0-0.2). Warren: DEEP=MD Yamil, Hoang MODI=VIRI Denney, Lisa RUSS=VIRI Nolan, Veronique SEGURA=VIRI Ruiz, Cee &a-1R&a+25V*p+0X*[id number]*c202B*c15G*c2P*p-0X&a-25V&a+1R Name: Alex Samson : 1965 M51 MedRec: [id number] AcctNum: [id number] Prepared: FriAug 19, 2016 16:03 by Interface Page 11 of 11 pMD MTDD
== END 2016-08-19 15:45 | disposition home or self-care (01) ==
LOC: NAV ERS 11:35
DX: R31.9 Hematuria, unspecified (principal); R11.2 Nausea with vomiting, unspecified; R19.7 Diarrhea, unspecified; I10 Essential (primary) hypertension; F17.210 Nicotine dependence, cigarettes, uncomplicated
CPT/HCPCS: 74176; 80053; 81003; 81015; 83690; 85025; 96361; 96374; J2405; J7050

== ENCOUNTER 2019-08-18 13:32 | Outpatient (CLI) | payer BC ==
--- NOTE | 2019-08-18 13:50 | RAD ---
EXAM: 3 views of the right shoulder HISTORY: Shoulder pain COMPARISON: None FINDINGS: There is no evidence of acute fracture or dislocation. No degenerative changes are present. No soft tissue swelling is seen. The visualized thorax is unremarkable. IMPRESSION: No evidence of acute osseous abnormality.
== END 2019-08-18 13:33 | disposition home or self-care (01) ==
LOC: NAV RAD 13:32
PROVIDERS: ATTEND Nurse Practitioner Family
DX: M25.511 Pain in right shoulder (principal)

== ENCOUNTER 2020-08-20 08:58 | Emergency (ER) | payer BC ==
[2020-08-20 22:33] LABS: SARS-CoV-2 PCR by NAA Not Detected (NotDetected)
== END 2020-08-20 10:25 | disposition home or self-care (01) ==
LOC: NAV ERS 08:58
DX: R09.81 Nasal congestion (principal); R51.9 Headache, unspecified; Z20.822 Contact with and (suspected) exposure to COVID-19; I10 Essential (primary) hypertension; F17.210 Nicotine dependence, cigarettes, uncomplicated
CPT/HCPCS: 87635; 99283; U0003; U0005

== ENCOUNTER 2021-08-02 05:39 | Emergency (ER) | payer BC ==
[2021-08-02 06:13] LABS: #Basophils 0.1 thou/uL (0.0-0.2); #Eosinphils 0.2 thou/uL (0.0-0.7); #Lymphocytes 0.4 thou/uL (1.20-3.40); #Monocytes 0.6 thou/uL (0.11-0.59); #Neutrophils 8.5 thou/uL (1.40-6.50); %Basophils 0.8 % (0.0-1.0); %Eosinophils 2.1 % (0.0-10.0); %Monocytes 6.5 % (0.0-10.0); %Neutrophils 86.7 % (42.0-75.0); Hemoglobin 17.8 g/dL (14.0-18.0); Mean Corpuscular HGB CONC 31.4 g/dL (32.0-36.0); Mean Corpuscular Hemoglobin 32.1 pg (27.0-31.0); Mean Platelet Volume 6.2 fL (7.4-10.4); Platelet Count 261 thou/uL (130-400); Red Blood Cell (RBC) Count 5.55 mill/uL (4.70-6.10); White Blood Cell (WBC) Count 9.8 thou/uL (4.8-10.8)
[2021-08-02 06:33] LABS: ALT (SGPT) 32 U/L (8-55); AST (SGOT) 25 U/L (5-34); Albumin 4.8 g/dL (3.5-5.0); Alkaline Phosphatase 67 U/L (40-110); Anion Gap 16 mmol/L (10-20); BUN (Urea Nitrogen) 19 mg/dL (8.4-25.7); Bilirubin, Total 0.7 mg/dL (0.2-1.2); Calc. Creatinine Clearance 0 mL/min (70-130); Carbon Dioxide 22 mmol/L (22-29); Chloride 104 mmol/L (98-107); Globulin 3.6 g/dL (2.4-3.5); Glucose 162 mg/dL (70-105); Lipase 275 U/L (8-78); Potassium 4.5 mmol/L (3.5-5.1); Protein, Total 8.4 g/dL (6.0-8.3); Sodium 137 mmol/L (136-145)
[2021-08-02] MEDS ORDERED: Sodium Chloride 0.9% 1,000 ML ONE (07:11)
[2021-08-02] MEDS ORDERED: Ondansetron PF 4 MG/2 ML Vial ONE (07:11)
[2021-08-02] MEDS ORDERED: Fentanyl 100 MCG/2 ML VIAL ONE (07:11)
[2021-08-02 08:38] LABS: Bilirubin Small (Negative); Blood, Urine Trace (Negative); Clarity Clear (Clear); Glucose, Urine (Dipstick) Negative (Negative); Ketone, Urine 15 mg/dL (Negative); Leukocyte Negative (Negative); Nitrite Negative (Negative); Protein, Urine (Dipstick) 100 mg/dL (Neg-Trace); Urobilinogen 0.2 mg/dL (Less than 2); pH, Urine 5.5 (5.0-9.0)
[2021-08-02 08:48] LABS: Bacteria/HPF Rare-Few HPF (None Seen); Mucous/LPF Few LPF (<2+); RBC/HPF 0-3 HPF (0-3); Specific Gravity, Urine 1.028 (1.002-1.036); Squamous Epithelial None Seen HPF (0-3); WBC/HPF 0-3 HPF (0-3)
== END 2021-08-02 09:36 | disposition home or self-care (01) ==
LOC: NAV ERS 05:39
DX: K85.90 Acute pancreatitis without necrosis or infection, unspecified (principal); N28.9 Disorder of kidney and ureter, unspecified; I10 Essential (primary) hypertension
CPT/HCPCS: 80053; 81003; 81015; 83690; 84484; 85025; 93005; 96374; 96375; J2405; J3010; J7050

== ENCOUNTER 2022-11-11 15:55 | Outpatient (CLI) | payer OTHER | END 2022-11-11 15:56 | disposition home or self-care (01) | LOC: NAV RAD 15:55 | PROVIDERS: ATTEND Nurse Practitioner Family | DX: M25.562 Pain in left knee (principal) ==